=== PATIENT | female | born 1940 | race Caucasian/White ===

== ENCOUNTER 2017-07-16 18:34 | Emergency (ER) | payer SELFPAY ==
[~2017-07-16] VITALS: Ht 160 cm; Wt 71.0 kg
[2017-07-16 18:40] VITALS: BP 205/99; PULSE 87; RESP 16; TEMP 99; O2SAT 92
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
[2017-07-16 18:54] VITALS: BP 184/87; PULSE 83; RESP 16; O2SAT 93
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
[2017-07-16 20:10] VITALS: BP 178/107; PULSE 77; RESP 18; O2SAT 97
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
== END 2017-07-16 21:00 | disposition home or self-care (01) ==
LOC: PHED 18:34
DX: S16.1XXA Strain of muscle, fascia and tendon at neck level, initial encounter (principal); S29.019A Strain of muscle and tendon of unspecified wall of thorax, initial encounter; S39.012A Strain of muscle, fascia and tendon of lower back, initial encounter; S30.1XXA Contusion of abdominal wall, initial encounter; R51 Headache; M50.30 Other cervical disc degeneration, unspecified cervical region; M51.34 Other intervertebral disc degeneration, thoracic region; M51.36 Other intervertebral disc degeneration, lumbar region; V49.40XA Driver injured in collision with unspecified motor vehicles in traffic accident, initial encounter
CPT/HCPCS: 71045; 72040; 72072; 72100; 72170; 99284